=== PATIENT | female | born 1995 | race Caucasian/White ===

== ENCOUNTER 2022-01-10 05:23 | Emergency (ER) | payer BC, OTHER ==
[~2022-01-10] VITALS: Ht 160 cm; Wt 114.4 kg
[2022-01-10 07:37] LABS: BASOPHILS % 0.5 % (0.0-2.0); EOSINOPHILS % 0.3 % (0.0-5.0); HEMATOCRIT. 41.3 % (36.0-48.0); HEMOGLOBIN. 14.1 g/dL (12.0-16.0); LYMPHOCYTES % 18.4 % (20.0-50.0); MEAN CORPUSCULAR HEMOGLOBIN 29.7 pg (28.0-32.0); MEAN CORPUSCULAR VOLUME 87.1 fL (81.0-99.0); MONOCYTES % 4.5 % (2.0-8.0); NEUTROPHILS % 76.3 % (40.0-76.0); PLATELET 362 x1000/uL (130-400); RED BLOOD CELL COUNT 4.74 mill/uL (4.2-5.4); RED CELL DISTRIBUTION WIDTH 12.7 % (11.6-14.6)
[2022-01-10 07:40] LABS: CLARITY URINE CLOUDY (CLEAR); COLOR URINE YELLOW (YELLOW); KETONES URINE TRACE (NEGATIVE); LEUKOCYTE ESTERASE URINE TRACE (NEGATIVE); NITRITE URINE NEGATIVE (NEGATIVE); OCCULT BLOOD URINE 3+ (NEGATIVE); PROTEIN URINE 1+ (NEGATIVE); SPECIFIC GRAVITY URINE 1.018 (1.005-1.030)
[2022-01-10 07:41] LABS: CHLORIDE 106 mEq/L (98-107)
[2022-01-10 07:44] LABS: HCG SCREEN NEGATIVE
[2022-01-10] MEDS ORDERED: TOPUD PO (08:33)
[2022-01-10] MEDS ORDERED: NITR100C PO (08:33)
[2022-01-10 08:46] VITALS: BP 125/86
== END 2022-01-10 08:48 | disposition home or self-care (01) ==
LOC: ER 05:23
DX: N39.0 Urinary tract infection, site not specified (principal); D27.1 Benign neoplasm of left ovary
CPT/HCPCS: 36415; 76830; 76856; 80053; 81003; 81025; 84703; 85025; 99284

== ENCOUNTER 2024-10-03 21:26 | Emergency (ER) | payer BC, MEDICAID ==
[~2024-10-03] VITALS: Ht 160 cm; Wt 109.0 kg
[~2024-10-03 21:26] MED LIST: NITR100C PO; TOPUD PO
[2024-10-03 21:33] VITALS: O2SAT 98
[2024-10-03 23:05] LABS: BASOPHILS % 0.9 % (0.0-2.0); EOSINOPHILS % 1.3 % (0.0-5.0); HEMATOCRIT. 42.1 % (36.0-48.0); HEMOGLOBIN. 13.9 g/dL (12.0-16.0); LYMPHOCYTES % 24.2 % (20.0-50.0); MEAN PLATELET VOLUME 7.9 fl (7.4-10.4); MONOCYTES % 4.9 % (2.0-8.0); NEUTROPHILS % 68.7 % (40.0-76.0); PLATELET 337 x1000/uL (130-400); RED BLOOD CELL COUNT 4.87 mill/uL (4.2-5.4); RED CELL DISTRIBUTION WIDTH 13.7 % (11.6-14.6)
[2024-10-03 23:17] LABS: CREATININE 1.0 mg/dL (0.6-1.0); UREA NITROGEN BLOOD 14 mg/dL (9-23)
[2024-10-03 23:45] LABS: HCG SCREEN NEGATIVE
[2024-10-04 00:34] LABS: CLARITY URINE CLOUDY (CLEAR); COLOR URINE DARK YELLOW (YELLOW); PH URINE 5.0 (4.5-8.0); PROTEIN URINE 2+ (NEGATIVE); SPECIFIC GRAVITY URINE 1.032 (1.005-1.030)
[2024-10-04 00:35] LABS: GLUCOSE URINE NEGATIVE (NEGATIVE); KETONES URINE TRACE (NEGATIVE); LEUKOCYTE ESTERASE URINE TRACE (NEGATIVE); NITRITE URINE NEGATIVE (NEGATIVE); OCCULT BLOOD URINE 3+ (NEGATIVE); UROBILINOGEN URINE 1.0 E.U./dL (0.2-1.0)
[2024-10-04] MEDS: ONDANSETRON HCL 4MG/2ML INJ IV NR (02:59)
[2024-10-04] MEDS: KETOROLAC 15MG/ML VIAL IV NR ×2 (03:03→05:18)
[2024-10-04 03:06] LABS: SQUAMOUS EPITHELIAL CELL URINE 1+ /lpf (RARE/1+)
[2024-10-04 03:07] LABS: RBC URINE TNTC /hpf (0-2)
[2024-10-04 03:08] LABS: WBC URINE 0-2 /hpf (0-2)
[2024-10-04 03:09] LABS: BACTERIA URINE NONE SEEN
[2024-10-04 03:13] LABS: URIC ACID CRYSTALS URINE 1+ /lpf
[2024-10-04] MEDS ORDERED: CEPH500C2 MT (05:05)
[2024-10-04] MEDS ORDERED: IBUP-2029 MT (05:05)
[2024-10-04] MEDS ORDERED: ONDA4TAB50 MT (05:05)
[2024-10-04] MEDS ORDERED: TAMS-54 MT (05:05)
[2024-10-04] MEDS: CEPHALEXIN 250MG CAPSULE PO ONE (05:19)
[2024-10-04] MEDS: TAMSULOSIN HCL 0.4MG SR CAPSULE PO ONE (05:19)
[2024-10-04] MEDS: SODIUM CHLORIDE 0.9% 1,000 ML IV ONE (05:20)
[2024-10-04 05:59] VITALS: BP 132/62; PULSE 60; RESP 12; TEMP 36.7; O2SAT 100
== END 2024-10-04 06:08 | disposition home or self-care (01) ==
LOC: ER 21:26
DX: N20.0 Calculus of kidney (principal); R10.9 Unspecified abdominal pain; N93.9 Abnormal uterine and vaginal bleeding, unspecified; Z79.899 Other long term (current) drug therapy
CPT/HCPCS: 99285; 80048; 81003; 81025; 84703; 85025; 36415; 74176; 96374; 76830; 76856; 96375; J1885; J2405